=== PATIENT | male | born 1995 ===

== ENCOUNTER 2017-07-11 01:56 | Emergency (ER) | payer BC ==
[~2017-07-11] VITALS: Ht 170.2 cm; Wt 68.0 kg
--- NOTE | 2017-07-11 02:15 | NUR ---
TO ROOM 4A FOR ER FARIHA.
--- NOTE | 2017-07-11 02:45 | NUR ---
ERMD AT BEDSIDE TALKING WITH PT AND FRIEND
--- NOTE | 2017-07-11 03:20 | NUR ---
TO CT SCAN
--- NOTE | 2017-07-11 03:35 | NUR ---
BACK FROM CT SCAN.PT AT BEDSIDE WITH FRIEND.WAITING FOR CT RESULTS
--- NOTE | 2017-07-11 04:00 | NUR ---
PT D/C HOME WITH FRIEND WITH RX AND ACI EXPLAINED TO PT AND FRIEND.BOTH VERBALIZED UNDERSTANDING
== END 2017-07-11 04:00 | disposition home or self-care (01) ==
LOC: ER 01:58
DX: J32.0 Chronic maxillary sinusitis (principal); H05.222 Edema of left orbit; F17.200 Nicotine dependence, unspecified, uncomplicated
CPT/HCPCS: 70480; 99284; A4663; J7512 ×2